=== PATIENT | female | born 1985 | race Caucasian/White ===

== ENCOUNTER 2016-09-07 18:25 | Emergency (ER) | payer MEDICAID ==
[~2016-09-07] VITALS: Ht 160 cm; Wt 61.0 kg
[~2016-09-07 18:25] MED LIST: PREN1TAB49
[2016-09-07 18:30] VITALS: Ht 160 cm; Wt 61.0 kg
[2016-09-07] MEDS ORDERED: AZIT250T94 PO (18:35)
[2016-09-07] MEDS ORDERED: CETI10CA PO (18:36)
[2016-09-07] MEDS ORDERED: BENZ100C70 PO (18:36)
[2016-09-07] MEDS ORDERED: ALBU8.5H3 INH (18:36)
[2016-09-07] MEDS ORDERED: ACET500C5 PO (18:36)
--- NOTE | 2016-09-07 18:39 | ERD ---
ER Documentation Chief Complaint Date/Time DATE: 09/07/16 TIME: 18:37 Chief Complaint pt reports cough for 5 days c/o ST and hx asthma HPI Patient is a 30-year-old female with a past medical history of asthma who presents to the ED with cough, congestion and mild headache 5 days. She states that she had a fever 5 days ago but no fever since. Denies chills. Denies abdominal pain, nausea, vomiting or diarrhea. She is only as Robitussin for her symptoms which is helped minimally. She states that she does not have an albuterol inhaler at home. She denies leg pain or swelling. Denies shortness of breath or chest pain. Denies recent travel or recent surgeries. No other complaints. Denies sick contacts. ROS All systems reviewed and are negative except as per history of present illness. Medications Home Meds Active Scripts Cetirizine Hcl* (Zyrtec*) 10 Mg Capsule, 10 MG PO DAILY, #10 TAB.CHEW Prov:LGIIA LOW-Soledad 09/07/16 Acetaminophen* (Tylophen*) 500 Mg Capsule, 1 CAP PO Q6H Y for PAIN AND OR ELEVATED TEMP, #20 CAP Prov:LATONIATARILIGIA ARGUETA-C 09/07/16 Albuterol Sulfate* (Proair HFA*) 8.5 Gm Hfa.aer.ad, 2 PUFF INH Q4, #2 INHALER Prov:LIGIA LOW-C 09/07/16 Benzonatate* (Tessalon Perle*) 100 Mg Capsule, 100 MG PO Q8H Y for COUGH for 14 Days, CAP Prov:LIGIA LOW-C 09/07/16 Azithromycin* (Zithromax*) 250 Mg Tablet, 250 MG PO .ZPACK DIRECTED, #6 TAB TAKE 500 MG (2 TABS) THE FIRST DAY THEN 250 MG (1 TAB) DAYS 2-5 Prov:LIGIA LOW-C 09/07/16 Reported Medications Vits W-Ca,Fe,Fa(<1MG) () 1 Tab Tablet 08/03/11 Allergies Allergies: Coded Allergies: No Known Allergy (Unverified , 08/03/11) PMhx/Soc History of Surgery: No Anesthesia Reaction: No Hx Neurological Disorder: No Hx Respiratory Disorders: Yes (ASTHMA) Hx Cardiac Disorders: No Hx Psychiatric Problems: No Hx Miscellaneous Medical Probl: No Hx Alcohol Use: No Hx Substance Use: No Hx Tobacco Use: No FmHx Family History: No coronary disease, No diabetes, No other Physical Exam Vitals Vital Signs Date Time Temp Pulse Resp B/P Pulse Ox O2 Delivery O2 Flow Rate FiO2 09/07/16 18:30 99.4 93 18 130/77 94 Physical Exam GENERAL: Well-developed, well-nourished female. Appears in no acute distress. HEAD: Normocephalic, atraumatic. EYES: Pupils are equally reactive bilaterally. EOMs grossly intact. No conjunctival erythema. ENT: Moist mucous membranes. No uvula deviation. No kissing tonsils. No exudates. NECK: Supple. No lymphadenopathy or thyromegaly. No meningismus. negative kernig. negative brudinski. LUNG: Clear to auscultation bilaterally. No rhonchi, wheezing, rales or coarse breath sounds. HEART: Regular rate and rhythm. No murmurs, rubs or gallops. BACK: No midline tenderness. Extremities: Equal pulses bilaterally. No peripheral clubbing, cyanosis or edema. No unilateral leg swelling. NEUROLOGIC: Alert and oriented. Moving all four extremities. 5/5 strength in all extremities. Normal speech. Steady gait. SKIN: Normal color. Warm and dry. No rashes or lesions. Capillary refill < 2 seconds Procedures/MDM ER COURSE: I kept the patient and/or family informed of laboratory and diagnostic imaging results throughout the emergency room course. MEDICAL DECISION MAKING: This is a 30-year-old female who presents with cough, congestion 5 days. Vital signs were reviewed. Patient is afebrile. Patient is not hypoxic. Patient is not toxic or ill-appearing. Patient likely has URI of viral versus bacterial etiology. No wheezing was heard upon examination at this time I do not think a breathing treatment here in the ED is necessary. I do not think further imaging studies is necessary as her lung examination is within normal limits. Due to the length of the symptoms I will be prescribing the patient with antibiotics however I advised patient to start the antibiotics in 2 days if symptoms have not improved. Patient does not show signs of respiratory distress. At this time patient does not need to be admitted. Low suspicion for pneumonia, PE, pneumothorax, ACS, epiglottitis, obstruction, TB, pertussis, meningitis, sepsis. Low suspicion for ACS, PE, AAA, dissection, DVT DISCHARGE: At this time, patient is stable for discharge and outpatient management with no new complaints during the ER course. Patient was sent home with azithromycin, Tessalon Perles, albuterol, Zyrtec and Tylenol. Patient will be discharged home with instructions to recheck for new or worsening symptoms such as fever, nausea , weakness, LOC and to follow up with primary care in the next 1-2 days. Patient was advised to return to the ER for any new or worsening symptoms. Plan was discussed and patient and/or family understands and agrees. Home instructions were given. Departure Diagnosis: Primary Impression: URI, acute Condition: Stable Patient Instructions: Uri, Viral, No Abx (Adult) [facility] Usted se gamble hecho un examen mdico de control que le indica que no est en karolina condicin que requiera tratamiento urgente en el Departamento de Emergencia. Un estudio ms profundo y el tratamiento de cardenas condicin pueden esperar sin ningn riesgo hasta que usted sea atendida/o en el consultorio de cardenas mdico o karolina cl ailyn. Es responsabilidad suya arreglar karolina lyn para el seguimiento del jesus. MANEJO DE CONDICIONES NO URGENTES EN EL FUTURO 1) Si usted tiene un mdico de atencin primaria: Usted debera llamar a cardenas mdico de atencin primaria antes de venir al departamento de emergencia. Despus de las horas de consultorio, cardenas doctor o cardenas asociado/a est disponible por telfono. El mdico o enfermero de mario en el servicio telefnico puede asesorarle por norma medio para atender el problema, o jseus contrario se puede programar karolina lyn. 2) Si usted no tiene un mdico de atencin primaria: Llame al mdico o clnica de referencia que aparece abajo derrick las horas de consultorio para hacer karolina lyn para que le vean. CLINICAS: [facility] [phone] [facility] [phone] [facility] [phone] [place] [phone] [place] [phone] [facility] [phone] [address] Additional Instructions: Llame al doctor MAANA y xavier karolina LYN PARA DENTRO DE 1-2 PAYTON.Dgale a la secretaria que nosotros le instruimos hacer esta lyn.Avise o llame si cardenas condicin se empeora antes de la lyn. Regresa aqui si peor o no mejor. LIGIA LOW PA-C Sep 07, 2016 18:39
== END 2016-09-07 18:37 | disposition home or self-care (01) ==
LOC: E/R 18:25
DX: J06.9 Acute upper respiratory infection, unspecified (principal); J45.909 Unspecified asthma, uncomplicated
CPT/HCPCS: 99284